=== PATIENT | female | born 1985 | race Caucasian/White ===

== ENCOUNTER 2019-09-20 09:29 | Emergency (ER) | payer MEDICAID ==
[~2019-09-20] VITALS: Ht 170.2 cm; Wt 90.9 kg
[2019-09-20 09:34] VITALS: BP 147/102
[2019-09-20] MEDS ORDERED: HYDROcodone/acetaminophen 10/325mg tab PO STA (09:38)
[2019-09-20] MEDS ORDERED: HYDR-3965 PO (11:45)
== END 2019-09-20 12:08 | disposition home or self-care (01) ==
LOC: ER 09:30
DX: S82.841A Displaced bimalleolar fracture of right lower leg, initial encounter for closed fracture (principal); Z79.899 Other long term (current) drug therapy; W18.39XA Other fall on same level, initial encounter; Y93.89 Activity, other specified; Y92.89 Other specified places as the place of occurrence of the external cause; Y99.8 Other external cause status
CPT/HCPCS: 73610; 99283

== ENCOUNTER 2024-02-04 10:53 | Emergency (ER) | payer MEDICAID ==
[~2024-02-04] VITALS: Ht 170.2 cm; Wt 136.4 kg
[2024-02-04 10:56] VITALS: BP 158/96; PULSE 81; RESP 16; TEMP 98; O2SAT 99
[2024-02-04] MEDS ORDERED: NAPR-56 PO (13:03)
== END 2024-02-04 13:27 | disposition home or self-care (01) ==
LOC: ER 10:54
DX: S93.402A Sprain of unspecified ligament of left ankle, initial encounter (principal); Z79.899 Other long term (current) drug therapy; X58.XXXA Exposure to other specified factors, initial encounter; Y93.89 Activity, other specified; Y92.89 Other specified places as the place of occurrence of the external cause; Y99.8 Other external cause status
CPT/HCPCS: 73610; 99283